=== PATIENT | female | born 1950 | race Caucasian/White ===

== ENCOUNTER 2016-10-10 10:30 | Emergency (ER) | payer BC ==
[~2016-10-10] VITALS: Ht 162.6 cm; Wt 72.0 kg
[2016-10-10 13:52] LABS: MEAN PLAT.VOLUME 8.3 uM^3 (9.5-12.4); PLATELET COUNT 447 K/uL (156-360); RBC DIS.WIDTH-CV 12.6 % (11.8-14.6); RBC DIS.WIDTH-SD 40.6 % (39-53); RED BLOOD COUNT 3.41 M/uL (3.80-5.20); WHITE BLOOD COUNT 7.3 K/uL (4.1-10.2)
[2016-10-10 14:11] LABS: CHLORIDE 100 mEq/L (99-109); POTASSIUM 4.1 mEq/L (3.7-5.4); SODIUM 132 mEq/L (136-147)
[2016-10-10 14:14] LABS: GLUCOSE 94 mg/dL (70-99)
[2016-10-10 14:15] LABS: ANION GAP 9 MEQ/L (2-14)
[2016-10-10 14:16] LABS: TOTAL BILIRUBIN 0.3 mg/dL (0.0-1.0)
[2016-10-10 14:17] LABS: ALKALINE PHOSPHATASE 70 IU/L (3-129); GFR ESTIMATE (CALCULATED) 53 mL/min/
[2016-10-10 14:18] LABS: UREA NITROGEN (BUN) 11 mg/dL (9-23)
[2016-10-10 14:58] LABS: ADD MIUA? YES; BILIRUBIN NEGATIVE; BLOOD NEGATIVE; COLOR STRAW ((YELLOW)); GLUCOSE (STRIP) NEGATIVE; KETONES NEGATIVE; LEUKOCYTES MODERATE; NITRITE NEGATIVE; PROTEIN (STRIP) NEGATIVE; SPECIFIC GRAVITY 1.004 (1.000-1.030); UROBILINOGEN 0.2 MG/DL (0.2-1.0)
[2016-10-10 15:26] LABS: BACTERIA RARE /HPF; CASTS NONE SEEN /LPF; CRYSTALS NONE SEEN; EPITHELIAL CELLS 1+ /HPF; MUCUS TRACE /LPF; RED BLOOD CELLS RARE /HPF (0-5); WHITE BLOOD CELLS 20-30 /HPF (0-5)
[2016-10-10 15:33] VITALS: BP 120/70
== END 2016-10-10 15:34 | disposition home or self-care (01) ==
LOC: EME 10:30
PROVIDERS: Emergency Medicine
DX: K52.9 Noninfective gastroenteritis and colitis, unspecified (principal); E86.0 Dehydration; R82.71 Bacteriuria; I10 Essential (primary) hypertension
CPT/HCPCS: 80053; 81003; 85027; 87177; 87493; 87506; 99281; 99285; J7030

== ENCOUNTER → 2017-02-09 | Outpatient (CLI) | payer BC | END | disposition home or self-care (01) | LOC: NUC 11:22 | DX: R10.9 Unspecified abdominal pain (principal); R19.7 Diarrhea, unspecified | CPT/HCPCS: 78227; A9537; J2805 ==

== ENCOUNTER 2017-09-20 21:23 | Inpatient (IN) | payer OTHER, BC ==
[~2017-09-20] VITALS: Ht 162.6 cm; Wt 60.6 kg
[~2017-09-20 21:23] MED LIST: CELEBREX100 MG PO; CYMBALTA30 MG PO; HYOSCYAMINE0.375 MG PO; IRON325 M1 PO; LO-DOSE ASPIRIN81 M1 PO; LUMIGAN 0.50 DROP/22 BOTH EYES; NEURONTIN300 MG PO; PLAQUENIL200 MG PO; PROTONIX40 MG PO; SYNTHROID50 MCG PO; ZESTRIL5 MG PO
[2017-09-21 06:10] VITALS: BP 140/70
[2017-09-21 11:48] VITALS: BP 99/62
[2017-09-21 16:04] VITALS: BP 127/68
[2017-09-21 20:36] VITALS: BP 129/58
[2017-09-22 00:06] VITALS: BP 103/57
[2017-09-22 04:18] VITALS: BP 118/65
[2017-09-22 05:49] LABS: BASOPHIL (%) 0.3 % (0-1); EOSINOPHIL (%) 0.6 % (0-5); EOSINOPHIL COUNT 0.1 K/uL (0-0.3); HEMATOCRIT 23.7 % (36.0-46.0); IMMATURE GRANULOCYTE (%) 0.4 % (0.0-0.7); LYMPHOCYTE COUNT 0.8 K/uL (1.0-2.8); MCH 29.1 PG (29.0-34.0); MCHC 33.8 G/DL (30.0-36.0); MCV 86.2 FL (83-99); MONOCYTE (%) 8.4 % (3-12); MONOCYTE COUNT 0.9 K/uL (0-0.8); NEUTROPHIL (%) 82.3 % (45-76); NEUTROPHIL COUNT 8.5 K/uL (1.8-6.4); RBC DIS.WIDTH-CV 13.5 % (11.8-14.6); RBC DIS.WIDTH-SD 42.3 % (39-53); WHITE BLOOD COUNT 10.3 K/uL (4.1-10.2)
[2017-09-22 06:53] LABS: PLATELET COUNT 317 K/uL (156-360); RED BLOOD COUNT 2.75 M/uL (3.80-5.20)
[2017-09-22 08:17] VITALS: BP 137/67
[2017-09-22] MEDS ORDERED: ASPIRIN EC325 MG PO (08:36)
[2017-09-22] MEDS ORDERED: ENDOCET 5-3251 EACH PO (08:38)
[2017-09-22 11:30] VITALS: BP 131/67
== END 2017-09-22 12:34 | disposition home or self-care (01) | DRG 483 ==
LOC: ENRESERV 21:23 → 3WEST 09-21 05:25 → 2SOUTH 09-21 05:25 → 3WEST 09-21 11:26 → 2SOUTH 09-21 12:22 → 3WEST 09-22 12:34
PROVIDERS: Orthopaedic Surgery
PROC: 0RRJ00Z Replacement of Right Shoulder Joint with Reverse Ball and Socket Synthetic Substitute, Open Approach (ICD-10-PCS; principal; 2017-09-21)
DX: M19.011 Primary osteoarthritis, right shoulder (principal); I10 Essential (primary) hypertension; K21.9 Gastro-esophageal reflux disease without esophagitis; E03.9 Hypothyroidism, unspecified; F32.9 Major depressive disorder, single episode, unspecified; Z79.82 Long term (current) use of aspirin
CPT/HCPCS: 36415; 73030; 80053; 85025; C1713; J0131; J0330; J0690; J1100; J2250; J2405; J2795; J3010; J7030; J7050; Q0175